=== PATIENT | male | born 1950 | race Two or more races ===

== ENCOUNTER 2022-09-25 11:19 | Outpatient (CLI) | payer OTHER | END 2022-09-25 11:32 | disposition home or self-care (01) | LOC: RAD 11:19 | PROVIDERS: ATTEND General Practice | DX: J44.9 Chronic obstructive pulmonary disease, unspecified (principal) ==

== ENCOUNTER 2023-06-18 15:02 | Emergency (ER) | payer OTHER ==
[~2023-06-18] VITALS: Ht 170.2 cm; Wt 97.1 kg
[2023-06-18] MEDS ORDERED: ATORVASTATIN CA20 MG (15:22)
[2023-06-18] MEDS ORDERED: AMLODIPINE-OLM1 EAC1 (15:23)
[2023-06-18] MEDS ORDERED: GLUMETZA1000 MG (15:23)
[2023-06-18] MEDS ORDERED: LOSARTAN POTAS100 MG (15:23)
== END 2023-06-18 17:40 ==
LOC: ER 15:02
DX: B07.8 Other viral warts (principal); Z88.0 Allergy status to penicillin; E11.9 Type 2 diabetes mellitus without complications; I10 Essential (primary) hypertension; E78.49 Other hyperlipidemia; Z79.84 Long term (current) use of oral hypoglycemic drugs
CPT/HCPCS: 96372; 99284; J1885